=== PATIENT | female | born 1975 | race African-American/Black ===

== ENCOUNTER 2023-06-10 05:54 | Emergency (ER) | payer MEDICAID ==
[~2023-06-10] VITALS: Ht 185.4 cm; Wt 125.5 kg
[2023-06-10 06:51] VITALS: PULSE 85; RESP 16; TEMP 98.4; O2SAT 99
[2023-06-10] MEDS ORDERED: CEPH500C PO (06:51)
[2023-06-10 07:04] VITALS: BP 159/99
== END 2023-06-10 07:03 | disposition home or self-care (01) ==
LOC: ER 05:54
DX: S80.821A Blister (nonthermal), right lower leg, initial encounter (principal); I10 Essential (primary) hypertension; F17.210 Nicotine dependence, cigarettes, uncomplicated; F15.90 Other stimulant use, unspecified, uncomplicated; Z90.49 Acquired absence of other specified parts of digestive tract; Z79.899 Other long term (current) drug therapy; W57.XXXA Bitten or stung by nonvenomous insect and other nonvenomous arthropods, initial encounter; Y93.89 Activity, other specified; Y92.89 Other specified places as the place of occurrence of the external cause; Y99.8 Other external cause status